=== PATIENT | female | born 1985 | race Caucasian/White ===

== ENCOUNTER 2019-02-17 17:38 | Emergency (ER) | payer OTHER ==
[2019-02-17 17:48] VITALS: TEMP 98.1; BMI 21.1
--- NOTE | 2019-02-17 17:56 | PDOC ---
History of Present Illness - General Chief Complaint: Lightheaded Stated Complaint: Dizziness, sob Time Seen by Provider: 02/17/19 17:55 History Source: Patient, Family - History of Present Illness Initial Comments: Ms. Encarnacion is a 33 y/o woman with no PMH p/w ten days of mild shortness of breath , chest tightness, and lightheadedness. 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 She reports that her last flight was approx 10 days ago. She denies any leg pain or swelling, or any prior history of DVTs. She denies smoking, and is not on OCPs. She reports that she initially presented to her PCP ten days ago as she had also developed URI symptoms at that time. She reports that she was prescribed a course of azithromycin which finished yesterday, but she was concerned as the above symptoms have not resolved. She denies any fevers, chills, fatigue, night sweats, chest pain, abdominal pain. Past History - Past Medical History Allergies/Adverse Reactions: Allergies Allergy/AdvReac Type Severity Reaction Status Date / Time No Known Allergies Allergy Verified 02/17/19 17:44 Home Medications: Ambulatory Orders NK [No Known Home Medication] 02/17/19 COPD: No - Psycho Social/Smoking Cessation Hx Smoking History: Never smoked Information on smoking cessation initiated: No Hx Alcohol Use: No Drug/Substance Use Hx: No Review of Systems - Review of Systems Able to Perform ROS?: Yes Comments:: ROS: GENERAL/CONSTITUTIONAL: No fever or chills. No weakness. HEAD, EYES, EARS, NOSE AND THROAT: No change in vision. No ear pain or discharge. No sore throat. CARDIOVASCULAR: Chest tightness. shortness of breath. No chest pain RESPIRATORY: No cough, wheezing, or hemoptysis. GASTROINTESTINAL: No nausea, vomiting, diarrhea or constipation. GENITOURINARY: No dysuria, frequency, or change in urination. MUSCULOSKELETAL: No joint or muscle swelling or pain. No neck or back pain. SKIN: No rash NEUROLOGIC: Lightheadedness. No headache, vertigo, loss of consciousness, or change in strength/sensation. ENDOCRINE: No increased thirst. No abnormal weight change HEMATOLOGIC/LYMPHATIC: No anemia, easy bleeding, or history of blood clots. ALLERGIC/IMMUNOLOGIC: No hives or skin allergy. *Physical Exam - Vital Signs Last Vital Signs Temp Pulse Resp BP Pulse Ox 98.1 F 72 18 116/74 100 02/17/19 17:41 02/17/19 17:41 02/17/19 17:41 02/17/19 17:41 02/17/19 17:41 - Physical Exam Comments: PE: GENERAL: Awake, alert, and fully oriented, in no acute distress HEAD: No signs of trauma, normocephalic, atraumatic EYES: PERRLA, EOMI, sclera anicteric, conjunctiva clear ENT: Auricles normal inspection, hearing grossly normal, nares patent, oropharynx clear without exudates. Moist mucosa NECK: Normal ROM, supple, no lymphadenopathy, JVD, or masses LUNGS: No distress, speaks full sentences, clear to auscultation bilaterally HEART: Regular rate and rhythm, normal S1 and S2, no murmurs, rubs or gallops, peripheral pulses normal and equal bilaterally. ABDOMEN: Soft, nontender, normoactive bowel sounds. No guarding, no rebound. No masses EXTREMITIES : Normal inspection, Normal range of motion, no edema. No clubbing or cyanosis NEUROLOGICAL: Cranial nerves II through XII grossly intact. 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 Exam notable for RLL crackles. Differential includes viral syndrome vs other pulmonary source of residual infection s/p azithromycin. Anemia also possible given ligthheadedness, shortness of breath. Other differential includes , less likely ACS or PE given lack of risk factors. Plan: CBC CMP CXR EKG TSH D-Dimer rule out POC glucose orthostatic vitals Dispo: Likely home pending labs Orthostatic vitals - HR - 80 sitting, 84 standing BP - 110/82 sitting, 115/84 standing --- Patient signed out to Dr. Huerta Discharge - Discharge Information Problems reviewed: Yes Clinical Impression/Diagnosis: Lightheaded Uterine fibroid Qualifiers: Uterine leiomyoma location: unspecified location Qualified Code(s): D25.9 - Leiomyoma of uterus, unspecified Condition: Stable Disposition: HOME - Admission No - Follow up/Referral Referrals: ON STAFF,NOT [Primary Care Provider] - Rajan Baker MD [Staff Physician] - - Patient Discharge Instructions Patient Printed Discharge Instructions: DI for Dizziness-Nonvertigo Additional Instructions: Please drink plenty of fluids. Please follow up with your PMD and the SIPHONER in the next week. Please also follow up with the ENT if the dizziness returns or your feel vertiginous. Please return to the ED with any further concerns or complaints. - Post Discharge Activity
[2019-02-17] MEDS ORDERED: SODIUM CHLORIDE 1,000 ML IV STA (18:30)
[2019-02-17 18:31] LABS: HEMATOCRIT 39.8 % (32.4-45.2); HEMOGLOBIN 12.7 GM/dL (10.7-15.3); MCH 23.7 pg (25.7-33.7); MCHC 31.9 g/dl (32.0-36.0); MEAN CELL VOLUME 74.3 fl (80-96); MEAN PLT VOLUME 9.2 fl (7.5-11.1); RBC 5.35 M/mm3 (3.60-5.2); RDW 15.4 % (11.6-15.6); WHITE BLOOD COUNT 5.3 K/mm3 (4.0-10.0)
[2019-02-17] MEDS ORDERED: METOCLOPRAMIDE HCL INJECTION 10 MG/2 ML VIAL IVPB ONE (18:32)
[2019-02-17 18:41] VITALS: BP 110/85; PULSE 82
[2019-02-17] MEDS ORDERED: METOCLOPRAMIDE HCL INJECTION 10 MG/2 ML VIAL ONE (18:45)
[2019-02-17 18:59] LABS: PLATELET COUNT 290 K/MM3 (134-434)
--- NOTE | 2019-02-17 19:02 | PDOC ---
*Physical Exam - Vital Signs Last Vital Signs Temp Pulse Resp BP Pulse Ox 98.1 F 82 18 110/85 100 02/17/19 17:41 02/17/19 18:40 02/17/19 18:40 02/17/19 18:40 02/17/19 17:41 ED Treatment Course - LABORATORY CBC & Chemistry Diagram: 02/17/19 18:18 02/17/19 18:38 - ADDITIONAL ORDERS Additional order review: Laboratory Results 02/17/19 18:18 D-Dimer 741 H 02/17/19 18:18 RBC 5.35 H MCV 74.3 L MCHC 31.9 L RDW 15.4 MPV 9.2 - Medications Given in the ED: ED Medications Discontinued Medications Generic Name Dose Route Start Last Admin Trade Name Chloé PRN Reason Stop Dose Admin Metoclopramide HCl 10 mg 02/17/19 18:32 02/17/19 18:44 Reglan Injection - IVPB 02/17/19 18:33 10 mg ONCE ONE Administration Medical Decision Making - Medical Decision Making 02/17/19 18:59 Pt received on signed out by Dr. Eng. 33 y/o female with no significant PMH presenting today with 10 days of headache , dizziness, and lightheadedness associated with intermittent chest pain. 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 She saw her PCP and was given a z-pac which was finished yesterday. Exam shows crackles in the right lower lobe. She was jogging today when she felt lightheaded and difficult keeping balance. She has had vertigo in the past but reports that these symptoms are different. Orthostatics negative. D-dimer positive. Upreg negative. -CTA 02/17/19 19:19 EKG shows NSR, 77 bpm, no axis deviation, no ST elevation/depression, QTc 448. 02/17/19 2200 CTA negative for PE. Plan to d/c home, f/u PCP, SHIPPING AND RECEIVING ASSOCIATE, and ENT (as needed). Discharge - Discharge Information Problems reviewed: Yes Clinical Impression/Diagnosis: Lightheaded, Uterine fibroid Condition: Stable Disposition: HOME - Admission No - Follow up/Referral Referrals: ON STAFF,NOT [Primary Care Provider] - Rajan Baker MD [Staff Physician] - - Patient Discharge Instructions Patient Printed Discharge Instructions: DI for Dizziness-Nonvertigo Additional Instructions: Please drink plenty of fluids. Please follow up with your PMD and the SHIPPING AND RECEIVING ASSOCIATE in the next week. Please also follow up with the ENT if the dizziness returns or your feel vertiginous. Please return to the ED with any further concerns or complaints. - Post Discharge Activity
--- NOTE | 2019-02-17 19:11 | PDOC ---
Documentation entered by Samra Nguyen SCRIBE, acting as scribe for Gilda Rosario DO. Gilda Rosario DO: This documentation has been prepared by the Patrick massey Adrianna, SCRIBE, under my direction and personally reviewed by me in its entirety. I confirm that the documentation accurately reflects all work, treatment, procedures, and medical decision making performed by me. Attending Attestation - Resident Resident Name: Marvin Eng - ED Attending Attestation I have performed the following: I have examined & evaluated the patient, The case was reviewed & discussed with the resident, I agree w/resident's findings & plan, Exceptions are as noted - HPI HPI: The patient is a 33 year old female, with a significant PMH ovarian cysts, who presents to the ED for evaluation of lightheadedness for one week. Patient notes she has been feeling intermittently lightheaded and dizzy for the past week. She denies any exacerbating or alleviating factors (unaffected by turning head from side to side). Patient reports bilateral ear pain, noting her ears feel like theyre congested and she has to pop them. She states she had flu- like symptoms last week, and is unsure if her current symptoms are residual from her viral illness. Patient additionally complains of LLQ/suprapubic abdominal pain, and does states she had been diagnosed with ovarian cysts (last TVUS was last year, and notes growth in size of the cyst). She has not had an TVUS since, and notes she is due for her annual with her HOSPITALITY HOST. LMP was last week and normal. Allergies: NKA, NKDA Surgical History: None reported Social History: Denies EtOH, tobacco, or illicit drug use PCP: NOS HOSP[facility] HOST: Dr. Johnson - Physicial Exam PE: Constitutional: Awake, alert, oriented. No acute distress. Head: Normocephalic. Atraumatic Eyes: PERRL. EOMI. Conjunctivae are not pale. ENT: Mucous membranes are moist and intact. Posterior pharynx without exudates or erythema. Uvula midline. Neck: Supple. Full ROM. No lymphadenopathy. Cardiovascular: Regular rate. Regular rhythm. S1, S2 regular. Distal pulses are 2+ and symmetric. Pulmonary/Chest: No evidence of respiratory distress. Clear to auscultation bilaterally No wheezing, rales or rhonchi. Abdominal: Soft and nondistended. No rebound, guarding or rigidity. No organomegaly. No palpable masses. Good bowel sounds. Pelvic: +Left pelvic tenderness to palpation. Back: No CVA tenderness. Musculoskeletal: No edema. No cyanosis. No clubbing. Full range of motion in all extremities. Nocalf tenderness. Radial/pedal pulses are intact and 2+ bilaterally Skin: Skin is warm and dry. No petechiae. No purpura. Neurological: Alert and oriented to person, place, and time. Cranial nerves II -XII are grossly intact. Normal speech. Strength is grossly symmetric. No sensory deficits. Psychiatric: Good eye contact. Normal interaction, affect and behavior. - Medical Decision Making 02/17/19 19:09 I, Dr. Gilda Rosario, DO, attest that this document has been prepared under my direction and personally reviewed by me in its entirety. I further attest, that it accurately reflects all work, treatment, procedures and medical decision -making performed by me. a/p: 33yo female with lightheaded/dizziness x 1 week -pt admits to viral uri last week -states eating and drinking normally since, but today felt chest tightness, dizziness -hx of vertigo and states today's symptoms are different -pt states taking a deep breath also causes her to feel lightheaded -no sore throat, no monk, no cough -will send labs, ua, tvus, dimer -will also check tsh -hx of ovarian cyst and LLQ ttp -will monitor and reassess 02/17/19 19:12 dimer elevated pending tsh will need cta 02/17/19 19:46 labs reviewed tsh normal 02/17/19 20:53 leiomyomas on ultrasound, no ovarian pathology 02/17/19 20:59 discussed ultrasound results with the patient and gave a copy of the results states feels better after ivf hydraiton pending cta 02/17/19 21:03 cta chest neg for pe or intrathoracic pathology pt stable for dc to home Discharge - Discharge Information Problems reviewed: Yes Clinical Impression/Diagnosis: Lightheaded, Uterine fibroid Condition: Stable Disposition: HOME - Admission No - Follow up/Referral Referrals: ON STAFF,NOT [Primary Care Provider] - Rajan Baker MD [Staff Physician] - - Patient Discharge Instructions Patient Printed Discharge Instructions: DI for Dizziness-Nonvertigo Additional Instructions: Please drink plenty of fluids. Please follow up with your PMD and the DIRECTOR INFORMATICS in the next week. Please also follow up with the ENT if the dizziness returns or your feel vertiginous. Please return to the ED with any further concerns or complaints. - Post Discharge Activity Heart Score/ECG Review - ECG Intrepretation Comment:: 02/17/19 19:18 sinus at 77, nl axis, nl interval, no acute st/t wave findings ED Treatment Course - LABORATORY CBC & Chemistry Diagram: 02/17/19 18:18 02/17/19 18:38 - ADDITIONAL ORDERS Additional order review: Laboratory Results 02/17/19 02/17/19 02/17/19 18:38 18:18 18:18 D-Dimer 741 H Sodium 138 Potassium 3.8 Chloride 106 Carbon Dioxide 28 Anion Gap 5 L BUN 7.4 Creatinine 0.8 Est GFR (CKD-EPI)AfAm 111.48 Est GFR (CKD-EPI)NonAf 96.19 POC Glucometer Random Glucose 98 Calcium 9.3 Total Bilirubin 0.4 AST 28 ALT 40 Alkaline Phosphatase 66 Total Protein 7.9 Albumin 4.3 TSH 2.21 Serum , Qual Negative 02/17/19 18:09 D-Dimer Sodium Potassium Chloride Carbon Dioxide Anion Gap BUN Creatinine Est GFR (CKD-EPI)AfAm Est GFR (CKD-EPI)NonAf POC Glucometer 101 Random Glucose Calcium Total Bilirubin AST ALT Alkaline Phosphatase Total Protein Albumin TSH Serum , Qual 02/17/19 02/17/19 18:18 18:09 RBC 5.35 H MCV 74.3 L MCHC 31.9 L RDW 15.4 MPV 9.2 POC Glucometer 101 - RADIOLOGY Radiograph Interpretation: EXAM#: TYPE/EXAM: RESULT: [id number] US/TRANSVAGINAL ULTRASOUND US Transvaginal ultrasound Clinical information: lower abdominal pain; known ovarian cyst Impression: The left ovary demonstrates no discrete abnormality. Several subcentimeter follicles are noted. The right ovary could not be visualized. Several uterine intramural lesions are seen suggestive of leiomyomas. Reported By: Tera Dunlap MD 02/17/19 20:34 - Medications Given in the ED: ED Medications Discontinued Medications Generic Name Dose Route Start Last Admin Trade Name Freq PRN Reason Stop Dose Admin Sodium Chloride 1,000 mls @ 1,000 mls/hr 02/17/19 18:30 02/17/19 18:44 Normal Saline - IV 02/17/19 19:29 1,000 mls/hr ASDIR STA Administration Metoclopramide HCl 10 mg 02/17/19 18:32 02/17/19 18:44 Reglan Injection - IVPB 02/17/19 18:33 10 mg ONCE ONE Administration
[2019-02-17 19:39] LABS: ALBUMIN 4.3 g/dl (3.4-5.0); BILIRUBIN,TOTAL 0.4 mg/dL (0.2-1); BLOOD UREA NITROGEN 7.4 mg/dL (7-18); CALCIUM 9.3 mg/dL (8.5-10.1); CREATININE 0.8 mg/dL (0.55-1.3); POTASSIUM 3.8 mmol/L (3.5-5.1); TOT PROT 7.9 g/dl (6.4-8.2)
[2019-02-17] MEDS ORDERED: SODIUM CHLORIDE 0.9% 1000 ML INFUS.BAG IV ONE (20:59)
--- NOTE | 2019-02-18 12:00 | EKG ---
Test Reason : Blood Pressure : / mmHG Vent. Rate : 077 BPM Atrial Rate : 077 BPM P-R Int : 164 ms QRS Dur : 080 ms QT Int : 396 ms P-R-T Axes : 060 064 036 degrees QTc Int : 448 ms NORMAL SINUS RHYTHM NORMAL ECG NO PREVIOUS ECGS AVAILABLE Confirmed by JAREK HA, GEORGE ([id number]) on 02/18/2019 11:59:26 AM Referred By: Confirmed By:GEORGE TILLEY MD
== END 2019-02-17 22:22 | disposition home or self-care (01) ==
LOC: SUPCPDRO 17:38 → JER 17:38
PROC: 3E033GC Introduction of Other Therapeutic Substance into Peripheral Vein, Percutaneous Approach (ICD-10-PCS; principal; 2019-02-17)
DX: D25.9 Leiomyoma of uterus, unspecified (principal); R42 Dizziness and giddiness
CPT/HCPCS: 36415; 71275-TC; 76830-TC; 80053; 82962; 84443; 84703; 85027; 85379; 93005; 93010; 99283-25; J7030